=== PATIENT | male | born 1995 | race African-American/Black ===

== ENCOUNTER 2018-01-11 02:13 | Emergency (ER) | payer SELFPAY ==
--- NOTE | 2018-01-11 03:00 | RADIOLOGY REPORT (SQ) ---
EXAM DESCRIPTION: XR KNEE 4 OR MORE VIEWS COMPLETED DATE/TME: 01/11/2018 02:19 CLINICAL HISTORY: 22 years Male, R knee pain COMPARISON: None. Findings: Bones, joints, and soft tissues of the RIGHT XR KNEE 4 VIEWS appear intact. IMPRESSION: No acute findings.
[2018-01-11] MEDS ORDERED: IBUPROFEN 600 MG TABLET PO ONE (03:16)
[2018-01-11] MEDS ORDERED: ACETAMINOPHEN 325 MG TABLET PO ONE (03:16)
--- NOTE | 2018-01-11 03:19 | ER Document Report ---
ED General - General Chief Complaint: Knee Pain Stated Complaint: KNEE PAIN Time Seen by Provider: 01/11/18 02:59 Mode of Arrival: Wheelchair Information source: Patient TRAVEL OUTSIDE OF THE [place] IN LAST 30 DAYS: No - HPI Notes: 22-year-old otherwise healthy male with no past medical history who presents to the emergency department with chief complaint of right knee pain that started 2 days ago. Denies trauma to the knee and describes it as sharp in nature that is superior to the patella. He can pinpoint the pain and states it is exquisitely tender to touch. He endorses recently the last couple of months getting random cysts in different parts of his body and is wondering if that could be related to it. He denies any other symptoms. 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 - Related Data Allergies/Adverse Reactions: No Known Allergies Allergy (Verified 01/11/18 02:14) Past Medical History - Social History Smoking Status: Current Every Day Smoker Frequency of alcohol use: None Drug Abuse: None Family History: Reviewed & Not Pertinent Patient has suicidal ideation: No Patient has homicidal ideation: No Renal/ Medical History: Denies: Hx Peritoneal Dialysis Review of Systems - Review of Systems Constitutional: No symptoms reported EENT: No symptoms reported Cardiovascular: No symptoms reported Respiratory: No symptoms reported Gastrointestinal: No symptoms reported Genitourinary: No symptoms reported Male Genitourinary: No symptoms reported Musculoskeletal: See HPI Skin: No symptoms reported Hematologic/Lymphatic: No symptoms reported Neurological/Psychological: No symptoms reported Physical Exam - Vital signs Vitals: Temp Pulse Resp BP Pulse Ox 98.1 F 82 20 137/79 H 100 01/11/18 02:14 01/11/18 02:14 01/11/18 02:14 01/11/18 02:14 01/11/18 02:14 Course - Re-evaluation Re-evalutation: 01/11/18 03:42 Reevaluated patient with Danilo Almonte. Patient does have range of motion knee flexion and extension with pain. No effusion, knee is warm but not hot. This point I do not suspect a septic arthritis. Most likely represents a prepatellar bursitis. Will immobilize the knee give him crutches, and start a course of NSAIDs. - Vital Signs Vital signs: Temp Pulse Resp BP Pulse Ox 98.1 F 82 20 137/79 H 100 11/25/18 02:14 01/11/18 02:14 01/11/18 02:14 01/11/18 02:14 01/11/18 02:14 Discharge - Discharge Clinical Impression: Prepatellar bursitis of right knee Condition: Good Disposition: HOME, SELF-CARE Instructions: Use of Crutches ([facility]), Ice & Elevation ([facility]), Knee Immobilizing Splint ([facility]), Bursitis ([facility]) Additional Instructions: You were seen in the emergency department this evening for bursitis of your knee called prepatellar bursitis. Rest, immobilization, and the use of NSAIDs is the best treatment for this. Take Motrin 600 mg 4 times a day for the next 2 -3 days. If your knee becomes swollen, gets very hot, you are unable to move it that is concerning for an infection and you should immediately return to the emergency department. He should rest her knee for the next 3-4 days. Forms: Return to Work
[2018-01-11 04:08] VITALS: BP 118/62
== END 2018-01-11 04:10 | disposition home or self-care (01) ==
LOC: ER 02:13
DX: M70.41 Prepatellar bursitis, right knee (principal); M25.561 Pain in right knee; F17.200 Nicotine dependence, unspecified, uncomplicated
CPT/HCPCS: 99283; 73564; L1830

== ENCOUNTER 2018-03-20 00:24 | Emergency (ER) | payer OTHER ==
[2018-03-20 00:39] VITALS: BP 134/76
[2018-03-20] MEDS ORDERED: SULFAMETHOXAZOLE/TRIMETHOPRIM 800-160 MG TABLET PO ONE (01:02)
[2018-03-20] MEDS ORDERED: HYDROXYZINE PAMOATE 25 MG CAPSULE PO ONE (01:02)
[2018-03-20] MEDS ORDERED: CEPHALEXIN 500 MG CAPSULE PO ONE (01:03)
--- NOTE | 2018-03-20 01:08 | ER Document Report ---
ED Skin Rash/Insect Bite/Abscs - General Chief Complaint: Skin Problem Stated Complaint: RASH Time Seen by Provider: 03/20/18 00:43 Primary Care Provider: DANG POON MD [ACTIVE STAFF] - Follow up as needed Mode of Arrival: Ambulatory Information source: Patient Notes: 22-year-old male with no past medical history presents emergency department with a one month history of a rash to the posterior left leg. Patient states that it is pruritic. He states that he is been scratching the area and causing the rash to worsen. He has been taking [id number] Benadryl, Motrin. He states that over the last month he has tried Vaseline, Neosporin, hydrocortisone cream. He states that nothing is helping with his symptoms. He denies any new medications, lotion, soap, detergent, foods, clothing. He denies any fever, chills, nausea, vomiting. He denies any recent travel, recent surgery, calf pain, history of DVT or PE, history of malignancy, hormone use. TRAVEL OUTSIDE OF THE [place] IN LAST 30 DAYS: No - HPI Patient complains to provider of: Skin rash/lesion Onset: Other - 1 month Onset/Duration: Constant Quality of pain: No pain Severity: None Pain Level: Denies Skin Character: Erythema, Other - Excoriation, Skin Temperature: Cool Quality of rash: Itchy Identify cause: No Exacerbated by: Denies Relieved by: Denies Similar symptoms previously: No Recently seen / treated by doctor: No - Related Data Allergies/Adverse Reactions: No Known Allergies Allergy (Verified 01/11/18 02:14) Past Medical History - General Information source: Patient - Social History Smoking Status: Former Smoker Family History: Reviewed & Not Pertinent Renal/ Medical History: Denies: Hx Peritoneal Dialysis Review of Systems - Review of Systems Constitutional: No symptoms reported EENT: No symptoms reported Cardiovascular: No symptoms reported Respiratory: No symptoms reported Gastrointestinal: No symptoms reported Genitourinary: No symptoms reported Male Genitourinary: No symptoms reported Musculoskeletal: No symptoms reported Skin: Lesions Hematologic/Lymphatic: No symptoms reported Neurological/Psychological: No symptoms reported -: Yes All other systems reviewed and negative Physical Exam - Vital signs Vitals: Temp Pulse Resp BP Pulse Ox 97.5 F 81 17 134/76 H 98 03/20/18 00:37 03/20/18 00:37 03/20/18 00:37 03/20/18 00:37 03/20/18 00:37 - Notes Notes: PHYSICAL EXAMINATION: GENERAL: Well-appearing, well-nourished and in no acute distress. HEAD: Atraumatic, normocephalic. EYES: Pupils equal round and reactive to light, extraocular movements intact, sclera anicteric, conjunctiva are normal. ENT: Nares patent, oropharynx clear without exudates. Moist mucous membranes. NECK: Normal range of motion, supple without lymphadenopathy LUNGS: Breath sounds clear to auscultation bilaterally and equal. No wheezes rales or rhonchi. HEART: Regular rate and rhythm without murmurs ABDOMEN: Soft, nontender, nondistended abdomen. No guarding, no rebound. No masses appreciated. Musculoskeletal: Normal range of motion, no pitting or edema. No cyanosis. NEUROLOGICAL: Cranial nerves grossly intact. Normal speech, normal gait. Normal sensory, motor exams PSYCH: Normal mood, normal affect. SKIN: Warm, posterior left leg shows multiple excoriations and some surrounding erythema. Patient does not have any tenderness to palpation. Patient states that the area is extremely pruritic. Course - Re-evaluation Re-evalutation: 03/20/18 01:09 Patient has multiple excoriations from scratching the area to the posterior left leg with some surrounding erythema. This starts in the mid posterior thigh and goes to just below the knee. Patient denies any tenderness to palpation. He states that he only feels pruritus. He is taken Benadryl without relief of symptoms. Patient asking for something to help with the itch. Patient denies any purulent drainage. He states that he has had some serosanguineous fluid. Patient is neurovascularly intact in the left lower extremity. I discussed admission versus discharge home with the patient. Patient prefers to try oral antibiotics. I will start him on Bactrim and Keflex. His first dose was given in the emergency department. I will also start the patient on hydroxyzine for his pruritus. I instructed the patient to monitor the cellulitis. I told him that if it is worsening he needs to return to the emergency department for inpatient treatment. Patient feels comfortable with the plan of care. - Vital Signs Vital signs: Temp Pulse Resp BP Pulse Ox 97.5 F 81 17 134/76 H 98 03/20/18 00:37 03/20/18 00:37 03/20/18 00:37 03/20/18 00:37 03/20/18 00:37 Discharge - Discharge Clinical Impression: Multiple excoriations Cellulitis Qualifiers: Site of cellulitis: extremity Site of cellulitis of extremity: lower extremity Laterality: left Qualified Code(s): L03.116 - Cellulitis of left lower limb Condition: Good Disposition: HOME, SELF-CARE Instructions: Cellulitis ([facility]) Prescriptions: Cephalexin Monohydrate [Keflex 500 mg Capsule] 500 mg PO QID #28 capsule Hydroxyzine Pamoate [Vistaril] 25 mg PO TID #15 capsule Sulfamethoxazole/Trimethoprim [Bactrim Ds Tablet] 1 each PO BID #14 tablet Referrals: DANG POON MD [ACTIVE STAFF] - Follow up as needed
== END 2018-03-20 01:22 | disposition home or self-care (01) ==
LOC: ER 00:24
DX: L03.116 Cellulitis of left lower limb (principal); R21 Rash and other nonspecific skin eruption; L29.9 Pruritus, unspecified; Z87.891 Personal history of nicotine dependence
CPT/HCPCS: 99282

== ENCOUNTER 2018-03-22 04:49 | Emergency (ER) | payer OTHER ==
[2018-03-22 04:56] VITALS: BP 129/75
--- NOTE | 2018-03-22 05:21 | ER Document Report ---
HPI - HPI Time Seen by Provider: 03/22/18 05:01 Pain Level: 4 Notes: Patient is an otherwise healthy 22-year-old male who presents to the emergency department with chief complaint of rash to his posterior left leg. He states he was seen here several days ago and placed on oral antibiotics for cellulitis. Patient encouraged to return to the emergency department if he worsens in any way. Patient was under the understanding that if his symptoms worsen he would be admitted for IV antibiotics. He states that the rash has not gotten any better yet he denies any fevers or chills. Patient denies any history of diabetes or any other chronic medical problems. Past Medical History - General Information source: Patient - Social History Smoking Status: Current Some Day Smoker Frequency of alcohol use: None Drug Abuse: None Family History: Reviewed & Not Pertinent - Medical History Medical History: Negative Renal/ Medical History: Denies: Hx Peritoneal Dialysis Surgical Hx: Negative - Immunizations Immunizations up to date: Yes Vertical Provider Document - CONSTITUTIONAL Notes: PHYSICAL EXAMINATION: GENERAL: Well-appearing, well-nourished and in no acute distress. HEAD: Atraumatic, normocephalic. EYES: Pupils equal round extraocular movements intact, conjunctiva are normal. ENT: Nares patent NECK: Normal range of motion LUNGS: No respiratory distress Musculoskeletal: Normal range of motion NEUROLOGICAL: Normal speech, normal gait. PSYCH: Normal mood, normal affect. SKIN: Warm, Dry, normal turgor, excoriated rash noted to left posterior leg from mid thigh to mid calf. - INFECTION CONTROL TRAVEL OUTSIDE OF THE [place] IN LAST 30 DAYS: No Course - Re-evaluation Re-evalutation: 03/22/18 05:20 Rash appears to be consistent with eczema. There is excoriations noted from the mid thigh to the mid calf. Lab work will be obtained as patient is hoping to be admitted to the hospital. 03/22/18 06:11 CBC is unremarkable with no leukocytosis. CMP unremarkable. There is no criteria for inpatient admission. This was discussed with the patient. Patient will be given dose of IV clindamycin here in the emergency department and discharged home on p.o. clindamycin. Encourage patient to follow-up with dermatology. - Vital Signs Vital signs: Temp Pulse Resp BP Pulse Ox 98.2 F 72 16 129/75 H 99 03/22/18 04:52 03/22/18 04:52 03/22/18 04:52 03/22/18 04:52 03/22/18 04:52 - Laboratory Result Diagrams: 03/22/18 05:35 03/22/18 05:35 Discharge - Discharge Clinical Impression: Eczema of lower leg, Excoriation Condition: Stable Disposition: HOME, SELF-CARE Additional Instructions: The rash on the back your leg appears to be consistent with eczema. It is now excoriated due to all the itching that you have done. Please use the hydrocortisone cream to the area twice daily. Do not apply any other creams or ointments to this area. I would advise continuing to take the antibiotics at that Dr. Pinzon placed you on and give it at least a few more days. If you do not start to see improvement I would switch over to the antibiotics I have written for you on Friday. Please call your primary care provider to schedule an appointment. They need to reevaluate this so they can get you referred to a ceramic tile setter for further workup. Prescriptions: Clindamycin HCl 300 mg PO TID #30 capsule Hydrocortisone/Oatmeal/Aloe/E [Hydrocortisone 1% Cream] 28.4 gm TP BID #1 tube Forms: Return to Work
[2018-03-22 05:51] LABS: ABSOLUTE EOSINOPHILS # (AUTO) 0.7 10^3/uL (0.0-0.6); ABSOLUTE LYMPHOCYTES (AUTO) 1.6 10^3/uL (0.5-4.7); ABSOLUTE MONOCYTES (AUTO) 0.7 10^3/uL (0.1-1.4); ABSOLUTE NEUT (AUTO) 4.6 10^3/uL (1.7-8.2); BASOPHILS % (AUTO) 0.4 % (0-2); HEMATOCRIT 42.6 % (37.9-51.0); HEMOGLOBIN 14.3 g/dL (13.5-17.0); LYMPHOCYTES % (AUTO) 20.6 % (13-45); MEAN CORPUSCULAR HEMOGLOBIN 29.5 pg (27.0-33.4); MEAN CORPUSCULAR HGB CONC 33.6 g/dL (32.0-36.0); MEAN CORPUSCULAR VOLUME 88 fl (80-97); MONOCYTES % (AUTO) 8.9 % (3-13); PLATELET COUNT 213 10^3/uL (150-450); RED BLOOD COUNT 4.84 10^6/uL (4.35-5.55); RED CELL DISTRIBUTION WIDTH 13.4 % (11.5-14.0); SEGMENTED NEUTROPHILS % (AUTO) 61.1 % (42-78); TOTAL CELLS COUNTED % (AUTO) 100 %; WHITE BLOOD COUNT 7.6 10^3/uL (4.0-10.5)
[2018-03-22] MEDS ORDERED: CLINDAMYCIN 600 MG/D5W RTU 600 MG/50 ML RTUPB IV ONE (05:52)
[2018-03-22 06:21] LABS: ALANINE AMINOTRANSFERASE 15 U/L (21-72); ALBUMIN 4.4 g/dL (3.5-5.0); ALKALINE PHOSPHATASE 60 U/L (38-126); ANION GAP 7 (5-19); ASPARTATE AMINO TRANSFERASE 74 U/L (17-59); BILIRUBIN,DIRECT 0.5 mg/dL (0.0-0.4); BILIRUBIN,TOTAL 0.7 mg/dL (0.2-1.3); BLOOD UREA NITROGEN 14 mg/dL (7-20); CALCIUM 9.1 mg/dL (8.4-10.2); CARBON DIOXIDE 31 mmol/L (22-30); CHLORIDE 106 mmol/L (98-107); GLUCOSE 78 mg/dL (75-110); POTASSIUM 4.6 mmol/L (3.6-5.0); SODIUM 144.4 mmol/L (137-145); TOTAL PROTEIN 7.6 g/dL (6.3-8.2)
[2018-03-22] MEDS ORDERED: HYDROCODONE/ACETAMINOPHEN 5-325 MG TABLET PO ONE (06:33)
== END 2018-03-22 07:33 | disposition home or self-care (01) ==
LOC: ER 04:49
DX: L30.9 Dermatitis, unspecified (principal); S80.812A Abrasion, left lower leg, initial encounter; X58.XXXA Exposure to other specified factors, initial encounter; F17.200 Nicotine dependence, unspecified, uncomplicated
CPT/HCPCS: 36415; 80053; 85025; 96365; 99283

== ENCOUNTER 2019-08-17 01:10 | Emergency (ER) | payer OTHER ==
--- NOTE | 2019-08-17 02:07 | RADIOLOGY REPORT (SQ) ---
CLINICAL INDICATION: bone pain. . TECHNIQUE: 2 view(s) were obtained of the right knee. COMPARISON: January 11, 2018. FINDINGS: No acute displaced fracture is identified of the knee. Alignment appears anatomic. Joint spaces are within normal limits for age. No significant joint effusion. Soft tissue swelling. IMPRESSION: No evidence of acute displaced fracture of the knee.
[2019-08-17] MEDS ORDERED: IBUPROFEN 600 MG TABLET PO ONE (04:09)
--- NOTE | 2019-08-17 04:09 | ER Document Report ---
Entered by JAYCE FINNEY SCRIBE 08/17/19 2000 Acting as scribe for:DAMEON FIELDS DO ED Extremity Problem, Lower - General Chief Complaint: Knee Pain Stated Complaint: RIGHT KNEE PAIN Mode of Arrival: Wheelchair Information source: Patient Notes: This 23 year old male patient presents to the ED today with complaints of right knee pain that started prior to arrival. Patient states that he was mowing the lawn this past weekend and now has pain and swelling to right knee. Denies any other pain. TRAVEL OUTSIDE OF THE [place] IN LAST 30 DAYS: No - Related Data Allergies/Adverse Reactions: No Known Allergies Allergy (Verified 01/11/18 02:14) Past Medical History - General Information source: Patient - Social History Smoking Status: Current Every Day Smoker Cigarette use (# per day): Yes Chew tobacco use (# tins/day): No Smoking Education Provided: No Family History: Reviewed & Not Pertinent Patient has suicidal ideation: No Patient has homicidal ideation: No - Immunizations Immunizations up to date: Yes Review of Systems - Review of Systems Constitutional: No symptoms reported EENT: No symptoms reported Cardiovascular: No symptoms reported Respiratory: No symptoms reported Gastrointestinal: See HPI. denies: Abdominal pain Genitourinary: No symptoms reported Male Genitourinary: No symptoms reported Musculoskeletal: See HPI, Joint pain - R knee, Joint swelling - R knee Skin: No symptoms reported Hematologic/Lymphatic: No symptoms reported Neurological/Psychological: No symptoms reported -: Yes All other systems reviewed and negative Physical Exam - Vital signs Vitals: Temp Pulse Resp BP Pulse Ox 99.0 F 80 20 135/72 H 100 08/17/19 01:17 08/17/19 01:17 08/17/19 01:17 08/17/19 01:17 08/17/19 01:17 - General General appearance: Appears well, Alert In distress: None - HEENT Head: Normocephalic, Atraumatic Eyes: Normal Pupils: PERRL - Respiratory Respiratory status: No respiratory distress Chest status: Nontender Breath sounds: Normal Chest palpation: Normal - Cardiovascular Rhythm: Regular Heart sounds: Normal auscultation Murmur: No Friction rub: No Gallop: None auscultated - Abdominal Inspection: Normal Distension: No distension Bowel sounds: Normal Tenderness: Nontender - Abdomen soft Organomegaly: No organomegaly - Back Back: Normal, Nontender - Extremities General upper extremity: Normal inspection General lower extremity: Normal inspection Knee: No: Joint effusion, Tender joint line - Neurological Neuro grossly intact: Yes Orientation: AAOx4 [place] Coma Scale Eye Opening: Spontaneous [place] Coma Scale Verbal: Oriented [place] Coma Scale Motor: Obeys Commands [place] Coma Scale Total: 15 - Psychological Associated symptoms: Normal affect, Normal mood - Skin Skin Temperature: Warm Skin Moisture: Dry Skin Color: Normal Course - Vital Signs Vital signs: Temp Pulse Resp BP Pulse Ox 99.0 F 80 20 135/72 H 100 08/17/19 01:17 08/17/19 01:17 08/17/19 01:17 08/17/19 01:17 08/17/19 01:17 Discharge - Discharge Clinical Impression: Right anterior knee pain Condition: Stable Disposition: HOME, SELF-CARE Instructions: Use of Crutches ([facility]), Ice & Elevation ([facility]), Sports and your Knee ([facility]), Sprained Knee ([facility]) Additional Instructions: Rest, ice and elevate right knee. Take the medicine as directed. See a doctor in follow up and return here for any problems or any concerns. Prescriptions: Ibuprofen [Motrin 600 mg Tablet] 600 mg PO TID #30 tablet I personally performed the services described in the documentation, reviewed and edited the documentation which was dictated to the scribe in my presence, and it accurately records my words and actions.
[2019-08-17 05:05] VITALS: BP 132/70
== END 2019-08-17 04:20 | disposition home or self-care (01) ==
LOC: ER 01:10
DX: M25.561 Pain in right knee (principal); M25.461 Effusion, right knee; F17.210 Nicotine dependence, cigarettes, uncomplicated
CPT/HCPCS: 99283